=== PATIENT | male | born 1965 | race Caucasian/White ===

== ENCOUNTER 2015-12-24 16:41 | Outpatient (RCR) | payer BC ==
[2015-12-24 10:22] LABS: BASOPHILS % (AUTO) 0 % (0-10); EOSINOPHILS # (AUTO) 0.2 10^3/uL (0.0-0.3); EOSINOPHILS % (AUTO) 3 % (0-10); LYMPHOCYTES # (AUTO) 1.9 X 10^3 (1.0-4.0); LYMPHOCYTES % (AUTO) 25 % (12-44); MEAN CORPUSCULAR HEMOGLOBIN 30 PG (25-34); MEAN CORPUSCULAR HGB CONC 34 G/DL (32-36); MEAN CORPUSCULAR VOLUME 90 FL (80-99); MEAN PLATELET VOLUME 10.7 FL (7.4-10.4); MONOCYTES # (AUTO) 0.9 X 10^3 (0.0-1.0); MONOCYTES % (AUTO) 12 % (0-12); NEUTROPHILS # (AUTO) 4.4 X 10^3 (1.8-7.8); NEUTROPHILS % (AUTO) 60 % (42-75); PLATELET COUNT 268 10^3/uL (130-400); RED CELL DISTRIBUTION WIDTH 13.5 % (10.0-14.5); WHITE BLOOD COUNT 7.4 10^3/uL (4.3-11.0)
[2015-12-24 10:39] LABS: PROTHROMBIN TIME PATIENT 13.1 SEC (12.2-14.7)
[2015-12-24 10:49] LABS: ALANINE AMINOTRANSFERASE 6 U/L (0-55); ALBUMIN 4.1 G/DL (3.2-4.5); ANION GAP 12 MMOL/L (5-14); ASPARTATE AMINO TRANSFERASE 25 U/L (5-34); BILIRUBIN,TOTAL 0.4 MG/DL (0.1-1.0); BLOOD UREA NITROGEN 11 MG/DL (7-18); BUN/CREATININE RATIO 13; CALCIUM 9.5 MG/DL (8.5-10.1); CARBON DIOXIDE 20 MMOL/L (21-32); CHLORIDE 103 MMOL/L (98-107); CREATININE SERUM 0.85 MG/DL (0.60-1.30); GFR ESTIMATED > 60; GLUCOSE 118 MG/DL (70-105); POTASSIUM 4.8 MMOL/L (3.6-5.0); SODIUM 135 MMOL/L (135-145); TOTAL PROTEIN 7.4 G/DL (6.4-8.2)
--- OUTSIDE RECORDS SUMMARY | 2015-12-24 16:44 | XMS REPORT | Continuity of Care Document ---
Author Author [facility] Organization [facility] Address Unknown Phone Unavailable Care Team Providers Care Core Analysis Operator Name Role Phone BobStas silva PCP [phone] Source Comments Some departments are not documenting in the electronic medical record. If you do not see the information that you expected, contact Release of Information in the Health Information Management department at [phone] for further assistance in locating additional records.[facility] Active Allergies and Adverse Reactions Allergen Noted Date Severity Reactions Comments Pollen 08/13/2015 Medium FEVER Current Medications Prescription Sig. Disp. Refills Start End Date Status Date losartan/hydrochlorothiaz Take 1 Tab by mouth Active birgit (HYZAAR) 100/12.5 mg daily. tablet amLODIPine (NORVASC) 5 mg Take 5 mg by mouth daily. Active tablet famotidine (PEPCID) 20 mg Take 20 mg by mouth daily Active tablet as needed. ibuprofen (MOTRIN) 600 mg Take 600 mg by mouth Active tablet every 6 hours as needed. diphenhydrAMINE Take 25 mg by mouth every Active (BENADRYL) 25 mg capsule 6 hours as needed. morphine IR (MSIR) 15 mg Take 15 mg by mouth at Active tablet bedtime daily ledipasvir-sofosbuvir(+) Take 1 Tab by mouth 30 Tab 1 08/28/19 Active (HARVONI) 90-400 mg daily. Indications: 16 tablet CHRONIC HEPATITIS C - GENOTYPE 1 Active Problems Problem Noted Date Porphyria cutanea tarda (HCC) 08/23/2014 Hepatitis C 08/21/2014 Overview: Diagnosed 2014 Genotype 1 a, treatment naive. Transaminitis 04/26/2014 Overview: - AST/ALT mildly elevated L ast Assessment & Plan: - likely related to ETOH use and Hep C - hepatitis C reactive on panel, viral load in process (no previous history of hepatitis) HTN (hypertension) 04/26/2014 Porphyrins urinary excretion increased (HCC) 04/26/2014 Overview: - urine porphyrins check due to rash - 24h urine urine: uroporphyrin (UP) 328, heptacarboxyl (7-CP) 479, pentacarboxyl (5-CP) 154, coproporphyrin (CP) 75, CP III 365 (all elevated) L ast Assessment & Plan: - symptoms are not classic for porphyria, but he does have elevated LFTs, red urine, hepatitis, that can all be linked to porphyria cutaneous tarda - will check serum porphyrins, repeat urine porphyrins - ferritin level and CBC pending, will plan to do phlebotomies with goal ferritin <20 if Hgb adequate EtOH dependence (HCC) 04/26/2014 Overview: - drinks ~6-12 pk daily L ast Assessment & Plan: - encouraged abstinence H/O testicular cancer 04/26/2014 Overview: - 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, s/p L orchiectomy and RPLND, s/p 4 cycles adjuvant PBV 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 - s/p excision in 2001 Resolved Problems Problem Noted Date Resolved Date Rash and nonspecific skin eruption 04/26/2014 08/14/2015 Overview: - persistent rash that has been present > 10 years - primarily on the arms bilaterally, noticed rash on neck and back of ears, as well - rash described as blistering that usually follow some type of trauma (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) - No worse in sun exposure, however diaphoresis seems to precipitate blistering - pruritic but was recently started on steroid cream which helps relieve itching - seen by baseball club manager in [place], [place] who sent urine for porphyrins, which came back elevated L ast Assessment & Plan: - repeating porphyria workup - cont steroid cream and following with derm for rash Most Recent Encounters Date Type Specialty Providers Description 12/03/2015 Telephone Hepatology Jamal Dyson MD Other 12/03/2015 Telephone Hepatology Jamal Dyson MD Follow-up Phone Call 11/29/2015 Orders Only Hepatology Renee Pascual Chronic hepatitis C without hepatic coma (HCC) 10/08/2015 Orders Only Hepatology Renee Pascual Chronic hepatitis C without hepatic coma (HCC) 10/04/2015 Orders Only Hepatology Renee Pascual Chronic hepatitis C without hepatic coma (HCC) Social History Tobacco Use Types Packs/Day Years Used Date Heavy Tobacco Smoker Cigarettes 04 21 Tobacco Cessation: Ready to Quit: No; Counseling Given: Yes Comments: Alcohol Use Drinks/Week oz/Week Comments Yes Last Filed Vital Signs Vital Sign Reading Time Taken Blood Pressure 170/87 08/13/2015 11:32 AM CDT Pulse 87 08/13/2015 11:32 AM CDT Temperature 36.6 C (97.9 F) 08/13/2015 11:32 AM CDT Respiratory Rate 18 08/13/2015 11:32 AM CDT Height 1.702 m (5' 7") 08/13/2015 11:32 AM CDT Weight 87.635 kg (193 lb 3.2 oz) 08/13/2015 11:32 AM CDT Body Mass Index 30.25 08/13/2015 11:32 AM CDT Oxygen Saturation 100% 08/13/2015 11:32 AM CDT Plan of Care Date Type Specialty Providers Description 02/08/2016 Appointment Hepatology Jamal Dyson MD [address] [facility] [address] [place] [address] [phone] (Fax) Health Maintenance Due Date Last Done Comments Physical (Comprehensive) 06/15/1970 Exam Pertussis Vaccine 06/15/1974 Tetanus Vaccine 06/15/1980 Colorectal Cancer 06/15/2013 Screening Influenza Vaccine 11/22/2015 Results from Last 3 Months COMPREHENSIVE METABOLIC PANEL (11/27/2015 10:30 AM)Only the most recent of 2 results within the time period is included. Component Value Range Sodium 136 135-145 MMOL/L Potassium 4.3 3.6-5.0 MMOL/L Chloride 102 98-107 MMOL/L CO2 22 21-32 MMOL/L Anion Gap 12 5-14 MMOL/L Blood Urea Nitrogen 13 7-18 MG/DL Creatinine 0.99 0.60-1.30 MG/DL eGFR Non >60 Glucose 119 (H) 70-105 H Calcium 9.8 8.5-10.1 MG/DL Total Bilirubin 0.5 0.1-1.0 MG/DL Alk Phosphatase 56 40-136 U/L AST (SGOT) 26 5-34 U/L ALT (SGPT) 8 0-55 U/L Total Protein 7.7 6.4-8.2 G/DL Albumin 4.2 3.2-4.5 G/DL Specimen Blood Narrative Outside Lab Verified by Renee Velez on 11/29/2015. PROTIME INR (PT) (11/27/2015 10:30 AM)Only the most recent of 2 results within the time period is included. Component Value Range Protime 12.4 12.2-14.7 SEC INR 1.0 0.8-1.4 Specimen Blood Narrative Outside Lab Verified by Renee Velez on 11/29/2015. CBC AND DIFF (11/27/2015 10:30 AM)Only the most recent of 2 results within the time period is included. Component Value Range Absolute Neutrophil Count 5.0 1.9-7.8 10^3/uL Absolute Lymph Count 2.2 1.0-4.0 10^3/uL Absolute Monocyte Count 1.1 (H) 0.0-1.0 10^3/uL Absolute Eosinophil Count 0.3 0.0-0.3 10^3/uL White Blood Cells 8.7 4.3-11.0 10^3/uL RBC 5.38 4.35-5.85 10^6/uL Hemoglobin 16.2 13.3-17.7 g/dl Hematocrit 48 40-54 % MCV 89 80-99 fl MCH 30 25-34 pg MCHC 34 32-36 g/dl Platelet Count 290 130-400 10^3/uL Neutrophils 58 42-75 % Lymphocytes 26 12-44 % Monocytes 13 (H) 0-12 % Eosinophil 3 0-10 % Basophil 0 0-10 % Specimen Blood Narrative Outside Lab Verified by Renee Velez on 11/29/2015. HEPATITIS C VIRAL LOAD PCR QUANT (10/02/2015 10:43 AM) Component Value Range Hepatitis C PCR not detected Quantitative Specimen Blood Narrative Outside Lab Verified by Renee Velez on 10/08/2015.
[2015-12-27 08:12] LABS: HEP C COPIES ML Not Detected (<=11)
[2015-12-27 08:13] LABS: HEPATITIS C LOG ML Not Detected (NOT DETECTE)
== END 2016-03-23 | disposition home or self-care (01) ==
LOC: LAB 16:41
PROVIDERS: ATTEND Internal Medicine
DX: B18.2 Chronic viral hepatitis C (principal)
CPT/HCPCS: 36415; 80053; 85025; 85610; 87522

== ENCOUNTER 2016-07-23 15:00 | Outpatient (RCR) | payer BC ==
[2016-07-17 11:25] LABS: BASOPHILS % (AUTO) 0 % (0-10); EOSINOPHILS # (AUTO) 0.3 10^3/uL (0.0-0.3); EOSINOPHILS % (AUTO) 3 % (0-10); LYMPHOCYTES # (AUTO) 2.5 X 10^3 (1.0-4.0); LYMPHOCYTES % (AUTO) 30 % (12-44); MEAN CORPUSCULAR HEMOGLOBIN 30 PG (25-34); MEAN CORPUSCULAR HGB CONC 33 G/DL (32-36); MEAN CORPUSCULAR VOLUME 91 FL (80-99); MEAN PLATELET VOLUME 10.7 FL (7.4-10.4); MONOCYTES # (AUTO) 0.9 X 10^3 (0.0-1.0); MONOCYTES % (AUTO) 11 % (0-12); NEUTROPHILS # (AUTO) 4.6 X 10^3 (1.8-7.8); NEUTROPHILS % (AUTO) 55 % (42-75); PLATELET COUNT 274 10^3/uL (130-400); RED BLOOD COUNT 5.18 10^6/uL (4.35-5.85); RED CELL DISTRIBUTION WIDTH 12.7 % (10.0-14.5); WHITE BLOOD COUNT 8.3 10^3/uL (4.3-11.0)
[2016-07-17 11:52] LABS: ALANINE AMINOTRANSFERASE 7 U/L (0-55); ALBUMIN 4.2 G/DL (3.2-4.5); ANION GAP 11 MMOL/L (5-14); ASPARTATE AMINO TRANSFERASE 22 U/L (5-34); BILIRUBIN,TOTAL 0.4 MG/DL (0.1-1.0); BLOOD UREA NITROGEN 14 MG/DL (7-18); BUN/CREATININE RATIO 14; CALCIUM 9.2 MG/DL (8.5-10.1); CARBON DIOXIDE 24 MMOL/L (21-32); CHLORIDE 102 MMOL/L (98-107); CREATININE SERUM 0.97 MG/DL (0.60-1.30); GFR ESTIMATED > 60; GLUCOSE 100 MG/DL (70-105); POTASSIUM 4.7 MMOL/L (3.6-5.0); SODIUM 137 MMOL/L (135-145); TOTAL PROTEIN 7.5 G/DL (6.4-8.2)
== END 2016-10-15 | disposition home or self-care (01) ==
LOC: ONC 15:00
PROVIDERS: ATTEND Internal Medicine Hematology & Oncology
DX: Z08 Encounter for follow-up examination after completed treatment for malignant neoplasm (principal); Z85.47 Personal history of malignant neoplasm of testis; Z85.89 Personal history of malignant neoplasm of other organs and systems; B19.20 Unspecified viral hepatitis C without hepatic coma; E80.1 Porphyria cutanea tarda; I10 Essential (primary) hypertension; F17.210 Nicotine dependence, cigarettes, uncomplicated
CPT/HCPCS: 36415; 80053; 82728; 85025; 99213

== ENCOUNTER 2017-03-12 14:25 | Outpatient (RCR) | payer BC ==
[2017-03-11 14:45] LABS: BASOPHILS % (AUTO) 0 % (0-10); EOSINOPHILS # (AUTO) 0.2 10^3/uL (0.0-0.3); EOSINOPHILS % (AUTO) 2 % (0-10); HEMATOCRIT 44 % (40-54); HEMOGLOBIN 15.4 G/DL (13.3-17.7); LYMPHOCYTES # (AUTO) 2.1 X 10^3 (1.0-4.0); LYMPHOCYTES % (AUTO) 19 % (12-44); MEAN CORPUSCULAR HEMOGLOBIN 31 PG (25-34); MEAN CORPUSCULAR HGB CONC 35 G/DL (32-36); MEAN CORPUSCULAR VOLUME 91 FL (80-99); MONOCYTES # (AUTO) 1.3 X 10^3 (0.0-1.0); MONOCYTES % (AUTO) 12 % (0-12); NEUTROPHILS # (AUTO) 7.5 X 10^3 (1.8-7.8); NEUTROPHILS % (AUTO) 68 % (42-75); PLATELET COUNT 277 10^3/uL (130-400); RED CELL DISTRIBUTION WIDTH 12.5 % (10.0-14.5); WHITE BLOOD COUNT 11.1 10^3/uL (4.3-11.0)
[2017-03-11 15:04] LABS: ALANINE AMINOTRANSFERASE 10 U/L (0-55); ALBUMIN 4.2 GM/DL (3.2-4.5); ALKALINE PHOSPHATASE 58 U/L (40-136); BILIRUBIN,TOTAL 0.3 MG/DL (0.1-1.0); BUN/CREATININE RATIO 16; CALCIUM 8.9 MG/DL (8.5-10.1); CARBON DIOXIDE 23 MMOL/L (21-32); CHLORIDE 105 MMOL/L (98-107); CREATININE SERUM 0.98 MG/DL (0.60-1.30); GFR ESTIMATED > 60; GLUCOSE 89 MG/DL (70-105); SODIUM 138 MMOL/L (135-145); TOTAL PROTEIN 7.7 GM/DL (6.4-8.2)
== END 2017-06-09 | disposition home or self-care (01) ==
LOC: ONC 14:25
PROVIDERS: ATTEND Internal Medicine Hematology & Oncology
DX: Z08 Encounter for follow-up examination after completed treatment for malignant neoplasm (principal); Z85.47 Personal history of malignant neoplasm of testis; Z85.89 Personal history of malignant neoplasm of other organs and systems; B19.20 Unspecified viral hepatitis C without hepatic coma; E80.1 Porphyria cutanea tarda; I10 Essential (primary) hypertension; F17.210 Nicotine dependence, cigarettes, uncomplicated; Z79.899 Other long term (current) drug therapy
CPT/HCPCS: 36415; 80053; 82378; 82728; 85025; 99213

== ENCOUNTER → 2018-03-09 | Outpatient (CLI) | payer BC ==
[2018-03-10 09:22] LABS: BUN/CREATININE RATIO 14; CARBON DIOXIDE 25 MMOL/L (21-32); CHLORIDE 104 MMOL/L (98-107); GFR ESTIMATED > 60; POTASSIUM 4.4 MMOL/L (3.6-5.0); SODIUM 139 MMOL/L (135-145)
[2018-03-10 09:23] LABS: ALANINE AMINOTRANSFERASE < 6 U/L (0-55); ALBUMIN 4.3 GM/DL (3.2-4.5); ALKALINE PHOSPHATASE 67 U/L (40-136); BILIRUBIN,TOTAL 0.5 MG/DL (0.1-1.0); CALCIUM 9.6 MG/DL (8.5-10.1); GLUCOSE 129 MG/DL (70-105); TOTAL PROTEIN 7.7 GM/DL (6.4-8.2)
[2018-03-10 09:24] LABS: HEMOGLOBIN 17.6 G/DL (13.3-17.7); MEAN PLATELET VOLUME 10.9 FL (7.4-10.4); RED BLOOD COUNT 5.67 10^6/uL (4.35-5.85); RED CELL DISTRIBUTION WIDTH 13.2 % (10.0-14.5); WHITE BLOOD COUNT 5.9 10^3/uL (4.3-11.0)
== END ==
LOC: LAB 14:09
PROVIDERS: ATTEND Internal Medicine
DX: R53.1 Weakness (principal); E80.1 Porphyria cutanea tarda; B19.20 Unspecified viral hepatitis C without hepatic coma; Z72.0 Tobacco use; Z85.89 Personal history of malignant neoplasm of other organs and systems; Z85.47 Personal history of malignant neoplasm of testis
CPT/HCPCS: 36415; 80053; 84443

== ENCOUNTER 2018-04-19 09:48 | Outpatient (RCR) | payer BC ==
[2018-03-09 13:07] LABS: BASOPHILS % (AUTO) 0 % (0-10); EOSINOPHILS # (AUTO) 0.2 10^3/uL (0.0-0.3); EOSINOPHILS % (AUTO) 3 % (0-10); HEMATOCRIT 51 % (40-54); HEMOGLOBIN 17.6 G/DL (13.3-17.7); LYMPHOCYTES # (AUTO) 1.8 X 10^3 (1.0-4.0); LYMPHOCYTES % (AUTO) 31 % (12-44); MEAN CORPUSCULAR HEMOGLOBIN 31 PG (25-34); MEAN CORPUSCULAR HGB CONC 35 G/DL (32-36); MEAN CORPUSCULAR VOLUME 90 FL (80-99); MEAN PLATELET VOLUME 10.9 FL (7.4-10.4); MONOCYTES # (AUTO) 0.6 X 10^3 (0.0-1.0); MONOCYTES % (AUTO) 11 % (0-12); NEUTROPHILS # (AUTO) 3.3 X 10^3 (1.8-7.8); NEUTROPHILS % (AUTO) 55 % (42-75); PLATELET COUNT 274 10^3/uL (130-400); RED CELL DISTRIBUTION WIDTH 13.2 % (10.0-14.5); WHITE BLOOD COUNT 5.9 10^3/uL (4.3-11.0)
[2018-03-09 13:26] LABS: ALANINE AMINOTRANSFERASE < 6 U/L (0-55); ALBUMIN 4.3 GM/DL (3.2-4.5); ALKALINE PHOSPHATASE 67 U/L (40-136); BILIRUBIN,TOTAL 0.5 MG/DL (0.1-1.0); BUN/CREATININE RATIO 14; CALCIUM 9.6 MG/DL (8.5-10.1); CARBON DIOXIDE 25 MMOL/L (21-32); CHLORIDE 104 MMOL/L (98-107); GFR ESTIMATED > 60; GLUCOSE 129 MG/DL (70-105); POTASSIUM 4.4 MMOL/L (3.6-5.0); SODIUM 139 MMOL/L (135-145); TOTAL PROTEIN 7.7 GM/DL (6.4-8.2)
== END 2018-06-07 | disposition home or self-care (01) ==
LOC: ONC 09:48
PROVIDERS: ATTEND Internal Medicine Hematology & Oncology
DX: E80.1 Porphyria cutanea tarda (principal); B19.20 Unspecified viral hepatitis C without hepatic coma; Z85.47 Personal history of malignant neoplasm of testis; Z85.89 Personal history of malignant neoplasm of other organs and systems; I10 Essential (primary) hypertension; F17.210 Nicotine dependence, cigarettes, uncomplicated; Z08 Encounter for follow-up examination after completed treatment for malignant neoplasm; Z79.899 Other long term (current) drug therapy
CPT/HCPCS: 80053; 82378; 82728; 84443; 85025; 85027; 99213

== ENCOUNTER 2019-05-09 12:01 | Outpatient (RCR) | payer SELFPAY | END 2019-05-12 13:38 | disposition home or self-care (01) | LOC: ONC 12:01 | PROVIDERS: ATTEND Internal Medicine Hematology & Oncology | DX: E80.1 Porphyria cutanea tarda (principal); B19.20 Unspecified viral hepatitis C without hepatic coma; Z85.47 Personal history of malignant neoplasm of testis; Z85.89 Personal history of malignant neoplasm of other organs and systems; I10 Essential (primary) hypertension; F17.210 Nicotine dependence, cigarettes, uncomplicated; Z08 Encounter for follow-up examination after completed treatment for malignant neoplasm; Z79.899 Other long term (current) drug therapy ==

== ENCOUNTER → 2019-05-12 | Outpatient (CLI) | payer SELFPAY ==
[2019-05-09 12:12] LABS: BASOPHILS % (AUTO) 0 % (0-10); EOSINOPHILS # (AUTO) 0.3 10^3/uL (0.0-0.3); EOSINOPHILS % (AUTO) 4 % (0-10); HEMATOCRIT 47 % (40-54); HEMOGLOBIN 15.9 G/DL (13.3-17.7); LYMPHOCYTES # (AUTO) 2.8 X 10^3 (1.0-4.0); LYMPHOCYTES % (AUTO) 32 % (12-44); MEAN CORPUSCULAR HEMOGLOBIN 31 PG (25-34); MEAN CORPUSCULAR HGB CONC 34 G/DL (32-36); MEAN CORPUSCULAR VOLUME 91 FL (80-99); MEAN PLATELET VOLUME 10.8 FL (7.4-10.4); MONOCYTES % (AUTO) 11 % (0-12); NEUTROPHILS # (AUTO) 4.9 X 10^3 (1.8-7.8); NEUTROPHILS % (AUTO) 54 % (42-75); PLATELET COUNT 287 10^3/uL (130-400); RED CELL DISTRIBUTION WIDTH 13.1 % (10.0-14.5)
[2019-05-09 12:38] LABS: ALANINE AMINOTRANSFERASE 8 U/L (0-55); ALBUMIN 4.3 GM/DL (3.2-4.5); ALKALINE PHOSPHATASE 62 U/L (40-136); BILIRUBIN,TOTAL 0.2 MG/DL (0.1-1.0); BUN/CREATININE RATIO 18; CALCIUM 9.5 MG/DL (8.5-10.1); CARBON DIOXIDE 24 MMOL/L (21-32); CHLORIDE 105 MMOL/L (98-107); GFR ESTIMATED > 60; GLUCOSE 97 MG/DL (70-105); POTASSIUM 4.7 MMOL/L (3.6-5.0); SODIUM 138 MMOL/L (135-145); TOTAL PROTEIN 7.4 GM/DL (6.4-8.2)
== END ==
LOC: EDSTATUS 06-08 08:32 → ONC 13:32
PROVIDERS: ATTEND Internal Medicine Hematology & Oncology
DX: E80.1 Porphyria cutanea tarda (principal); R19.4 Change in bowel habit; Z85.89 Personal history of malignant neoplasm of other organs and systems; Z85.47 Personal history of malignant neoplasm of testis; Z98.890 Other specified postprocedural states; Z86.19 Personal history of other infectious and parasitic diseases; Z90.79 Acquired absence of other genital organ(s); Z72.0 Tobacco use
CPT/HCPCS: 80053; 82378; 82728; 85025; 99213

== ENCOUNTER → 2019-05-17 | Outpatient (CLI) | payer OTHER ==
[~2019-05-17] MED LIST: BARIUM SUSPENSION 2.1% (VANILLA SILQ) 450 ML PO ONE; CATHETER FLUSH 10 ML SYR IV PRN; HOLD METFORMIN - RECEIVED CONTRAST 20 ML VIAL IV SCH; IOHEXOL 350 MG/ML 100 ML (OMNIPAQUE 350) VIAL IV ONE; NS 100 ML (IVPB) BAG IV ONE
--- NOTE | 2019-05-17 10:37 | Diagnostic Imaging Report ---
PROCEDURE: CT Neck, Chest Abdomen and Pelvis with contrast, Abdomen and Pelvis without. TECHNIQUE: Multiple contiguous axial images were obtained through the neck, chest, abdomen, and pelvis after the uneventful bolus administration of intravenous contrast. Precontrast acquisitions through the abdomen and pelvis were performed. Sagittal and coronal reformations are then performed. Auto Exposure Controls were utilized during the CT exam to meet ALARA standards for radiation dose reduction. INDICATION: Testicular cancer at age 15. Abdominal pain. COMPARISON: None. FINDINGS: CT NECK: No mass or fluid collection is seen in the neck. Left neck dissection changes are seen at the base of the left neck. There are mildly prominent cervical lymph nodes in the bilateral level 1B stations. No significant lymphadenopathy is seen based on size criteria. The aerodigestive tract is patent and symmetric. The parapharyngeal fat planes are preserved. No evidence of retropharyngeal or prevertebral fluid collections or masses. The laryngeal structures are unremarkable. The parotid, submandibular, and thyroid glands are symmetric and unremarkable. The included vascular structures of the neck are patent. The cervical spine demonstrates no acute fracture or dislocation. No focal osseous lesions are seen. Included intracranial contents are unremarkable. The globes and orbits are symmetric and unremarkable. Mucosal thickening is seen in the bilateral ethmoid sinuses, right sphenoid sinus, and left maxillary sinus. The mastoid air cells are well pneumatized. CT CHEST: The heart size is normal. No pericardial effusion. No lymphadenopathy in the chest. The lungs are clear without suspicious nodules or masses. Minimal dependent atelectasis is seen in the lung bases. No central endobronchial obstructing lesions. No pleural effusion or pneumothorax. No acute osseous abnormalities are seen in the chest. CT ABDOMEN AND PELVIS: There is generalized thickening of the left adrenal gland without focal nodularity. The right adrenal gland is unremarkable. A simple cortical cyst is seen in the inferior pole of the left kidney. No enhancing renal masses are seen bilaterally. No evidence of hydronephrosis or renal calculi. The liver, spleen, and pancreas have an unremarkable CT appearance without acute abnormalities. Postsurgical changes are visualized in the retroperitoneum representing lymph node dissection. No pathologically enlarged lymphadenopathy is seen in the abdomen and pelvis. No evidence of bowel obstruction. Scattered diverticuli are seen in the descending and sigmoid colon without evidence of acute diverticulitis. No free fluid or free air seen in the abdomen and pelvis. There is calcified aortic and iliac atherosclerotic plaque without evidence of aneurysm. No acute osseous abnormalities are seen. Endplate degenerative changes are present at L5-S1. The urinary bladder is mildly distended. The prostate is enlarged with exophytic protrusion into the trigone of the bladder. IMPRESSION: 1. No findings to suggest metastatic disease in the neck, chest, abdomen and pelvis. No pathologically enlarged lymphadenopathy. 2. Nonspecific generalized thickening of the left adrenal gland without focal nodule. If indicated, this can be followed with adrenal protocol CT in 6 months. Dictated by: Dictated on workstation # [id number]
== END ==
LOC: RAD 09:08
PROVIDERS: ATTEND Internal Medicine Hematology & Oncology
DX: E27.9 Disorder of adrenal gland, unspecified (principal); R19.4 Change in bowel habit; Z85.47 Personal history of malignant neoplasm of testis; Z85.89 Personal history of malignant neoplasm of other organs and systems
CPT/HCPCS: 70491; 71260; 74178

== ENCOUNTER 2019-05-26 05:37 | Outpatient (CLI) | payer OTHER ==
[~2019-05-26] VITALS: Ht 170.2 cm; Wt 90.5 kg
[2019-05-26] MEDS ORDERED: MORP-68 PO (11:50)
[2019-05-26] MEDS ORDERED: GABA-488 PO ×2 (11:50)
[2019-05-26] MEDS ORDERED: DIPH25TA65 PO (11:50)
[2019-05-26] MEDS ORDERED: IBUP-1773 PO (11:50)
[2019-05-26] MEDS ORDERED: LOSA100T57 PO (11:50)
[2019-05-26] MEDS ORDERED: AMLO10TA7 PO (11:50)
== END 2019-05-26 11:50 | disposition home or self-care (01) ==
LOC: PREOP 05:37
PROVIDERS: ATTEND Surgery
DX: Z01.818 Encounter for other preprocedural examination (principal)

== ENCOUNTER 2019-06-07 10:23 | Outpatient (RCR) | payer OTHER ==
[~2019-06-07 10:23] MED LIST changes: +AMLO10TA7 PO; -BARIUM SUSPENSION 2.1% (VANILLA SILQ) 450 ML PO ONE; -CATHETER FLUSH 10 ML SYR IV PRN; +DIPH25TA65 PO; +GABA-488 PO; -HOLD METFORMIN - RECEIVED CONTRAST 20 ML VIAL IV SCH; +IBUP-1773 PO; -IOHEXOL 350 MG/ML 100 ML (OMNIPAQUE 350) VIAL IV ONE; +LOSA100T57 PO; +MORP-68 PO; -NS 100 ML (IVPB) BAG IV ONE
== END 2019-09-05 | disposition home or self-care (01) ==
LOC: ONC 10:23
PROVIDERS: ATTEND Internal Medicine Hematology & Oncology
DX: D12.4 Benign neoplasm of descending colon (principal); K22.70 Barrett's esophagus without dysplasia; K57.30 Diverticulosis of large intestine without perforation or abscess without bleeding; K29.50 Unspecified chronic gastritis without bleeding; K64.0 First degree hemorrhoids; I10 Essential (primary) hypertension; J30.2 Other seasonal allergic rhinitis; Z90.49 Acquired absence of other specified parts of digestive tract; Z98.890 Other specified postprocedural states
CPT/HCPCS: 99213

== ENCOUNTER → 2019-11-29 | Outpatient (CLI) | payer SELFPAY ==
[~2019-11-29] MED LIST changes: +BARIUM SUSPENSION 2.1% (VANILLA SILQ) 450 ML PO ONE; +CATHETER FLUSH 10 ML SYR IV PRN; +HOLD METFORMIN - RECEIVED CONTRAST 20 ML VIAL IV SCH; +IOHEXOL 350 MG/ML 100 ML (OMNIPAQUE 350) VIAL IV ONE; +NS 100 ML (IVPB) BAG IV ONE
--- NOTE | 2019-11-29 11:34 | Diagnostic Imaging Report ---
PROCEDURE: CT abdomen with and without contrast. TECHNIQUE: Multiple contiguous axial CT images of the abdomen were obtained prior to and after intravenous administration of iodinated contrast. Auto Exposure Controls were utilized during the CT exam to meet ALARA standards for radiation dose reduction. INDICATION: Primary testicular carcinoma with elevated tumor markers. Correlation is made with prior CT from 05/17/2019. FINDINGS: The lung bases are clear. No discrete liver mass is detected. Gallbladder is unremarkable. No biliary ductal dilatation is seen. Pancreas and spleen are unremarkable. Right adrenal glands unremarkable. Thickening of the left adrenal gland is similar to prior exam. Kidneys are unremarkable. Aorta and iliac vessels are calcified but nonaneurysmal. There are postsurgical changes of central retroperitoneal lymph node dissection. Small retrocrural lymph node on the right is noted and appears similar to prior exam with short axis measuring approximately 7 mm. There is a questionable lymph node in the portacaval location measuring 3.1 x 1.2 cm, stable when compared to prior exam. Bowel loops are normal caliber. There is no ascites. Bony structures are nonacute. IMPRESSION: Overall stable CT abdomen with and without contrast when compared with prior study from 05/17/2019. Dictated by: Dictated on workstation # [id number]
== END ==
LOC: RAD 09:21
PROVIDERS: ATTEND Internal Medicine Hematology & Oncology
DX: E80.1 Porphyria cutanea tarda (principal); Z85.47 Personal history of malignant neoplasm of testis; C62.90 Malignant neoplasm of unspecified testis, unspecified whether descended or undescended
CPT/HCPCS: 74170

== ENCOUNTER 2019-12-09 13:48 | Outpatient (RCR) | payer SELFPAY ==
[2019-11-29 09:08] LABS: BASOPHILS % (AUTO) 0 % (0-10); EOSINOPHILS # (AUTO) 0.5 10^3/uL (0.0-0.3); EOSINOPHILS % (AUTO) 5 % (0-10); HEMATOCRIT 47 % (40-54); HEMOGLOBIN 16.3 G/DL (13.3-17.7); LYMPHOCYTES # (AUTO) 1.9 X 10^3 (1.0-4.0); LYMPHOCYTES % (AUTO) 20 % (12-44); MEAN CORPUSCULAR HEMOGLOBIN 31 PG (25-34); MEAN CORPUSCULAR HGB CONC 35 G/DL (32-36); MEAN CORPUSCULAR VOLUME 89 FL (80-99); MEAN PLATELET VOLUME 10.6 FL (7.4-10.4); MONOCYTES # (AUTO) 1.3 X 10^3 (0.0-1.0); MONOCYTES % (AUTO) 13 % (0-12); NEUTROPHILS # (AUTO) 6.2 X 10^3 (1.8-7.8); NEUTROPHILS % (AUTO) 63 % (42-75); PLATELET COUNT 263 10^3/uL (130-400); WHITE BLOOD COUNT 9.8 10^3/uL (4.3-11.0)
[2019-11-29 09:28] LABS: ALANINE AMINOTRANSFERASE 8 U/L (0-55); ALKALINE PHOSPHATASE 67 U/L (40-136); BILIRUBIN,TOTAL 0.2 MG/DL (0.1-1.0); BUN/CREATININE RATIO 17; CALCIUM 8.7 MG/DL (8.5-10.1); CARBON DIOXIDE 19 MMOL/L (21-32); CHLORIDE 109 MMOL/L (98-107); CREATININE SERUM 0.99 MG/DL (0.60-1.30); GFR ESTIMATED > 60; GLUCOSE 88 MG/DL (70-105); POTASSIUM 4.5 MMOL/L (3.6-5.0); SODIUM 137 MMOL/L (135-145); TOTAL PROTEIN 7.1 GM/DL (6.4-8.2)
[~2019-12-09 13:48] MED LIST changes: +AMLO-251 PO; -AMLO10TA7 PO; -BARIUM SUSPENSION 2.1% (VANILLA SILQ) 450 ML PO ONE; -CATHETER FLUSH 10 ML SYR IV PRN; -HOLD METFORMIN - RECEIVED CONTRAST 20 ML VIAL IV SCH; -IOHEXOL 350 MG/ML 100 ML (OMNIPAQUE 350) VIAL IV ONE; -NS 100 ML (IVPB) BAG IV ONE
== END 2020-02-27 | disposition home or self-care (01) ==
LOC: ONC 13:48
PROVIDERS: ATTEND Internal Medicine Hematology & Oncology
DX: D12.4 Benign neoplasm of descending colon (principal); K22.70 Barrett's esophagus without dysplasia; K57.30 Diverticulosis of large intestine without perforation or abscess without bleeding; K29.50 Unspecified chronic gastritis without bleeding; K64.0 First degree hemorrhoids; I10 Essential (primary) hypertension; J30.2 Other seasonal allergic rhinitis; Z90.49 Acquired absence of other specified parts of digestive tract; Z98.890 Other specified postprocedural states
CPT/HCPCS: 80053; 82728; 85025; 99195; 99213

== ENCOUNTER 2020-06-06 09:49 | Outpatient (RCR) | payer OTHER ==
[2020-06-04 10:33] LABS: BASOPHILS % (AUTO) 0 % (0-10); EOSINOPHILS # (AUTO) 0.3 10^3/uL (0.0-0.3); EOSINOPHILS % (AUTO) 3 % (0-10); HEMATOCRIT 47 % (40-54); HEMOGLOBIN 15.4 g/dL (13.3-17.7); LYMPHOCYTES # (AUTO) 1.9 10^3/uL (1.0-4.0); LYMPHOCYTES % (AUTO) 19 % (12-44); MEAN CORPUSCULAR HEMOGLOBIN 31 pg (25-34); MEAN CORPUSCULAR HGB CONC 33 g/dL (32-36); MEAN CORPUSCULAR VOLUME 93 fL (80-99); MEAN PLATELET VOLUME 10.9 fL (9.0-12.2); MONOCYTES # (AUTO) 1.1 10^3/uL (0.0-1.0); MONOCYTES % (AUTO) 11 % (0-12); NEUTROPHILS # (AUTO) 6.7 10^3/uL (1.8-7.8); NEUTROPHILS % (AUTO) 67 % (42-75); PLATELET COUNT 296 10^3/uL (130-400); WHITE BLOOD COUNT 10.1 10^3/uL (4.3-11.0)
[2020-06-04 10:51] LABS: ALANINE AMINOTRANSFERASE 7 U/L (0-55); ALKALINE PHOSPHATASE 62 U/L (40-136); BILIRUBIN,TOTAL 0.2 MG/DL (0.1-1.0); BUN/CREATININE RATIO 17; CALCIUM 9.1 MG/DL (8.5-10.1); CARBON DIOXIDE 21 MMOL/L (21-32); CHLORIDE 108 MMOL/L (98-107); CREATININE SERUM 1.03 MG/DL (0.60-1.30); GFR ESTIMATED > 60; GLUCOSE 94 MG/DL (70-105); POTASSIUM 4.2 MMOL/L (3.6-5.0); SODIUM 139 MMOL/L (135-145); TOTAL PROTEIN 7.1 GM/DL (6.4-8.2)
== END 2020-09-02 | disposition home or self-care (01) ==
LOC: ONC 09:49 → EDSTATUS 10:36
PROVIDERS: ATTEND Internal Medicine Hematology & Oncology
DX: E80.1 Porphyria cutanea tarda (principal); K22.70 Barrett's esophagus without dysplasia; I10 Essential (primary) hypertension; Z85.89 Personal history of malignant neoplasm of other organs and systems; F17.200 Nicotine dependence, unspecified, uncomplicated; F10.99 Alcohol use, unspecified with unspecified alcohol-induced disorder; Z85.47 Personal history of malignant neoplasm of testis; Z98.890 Other specified postprocedural states; Z86.19 Personal history of other infectious and parasitic diseases; Z90.79 Acquired absence of other genital organ(s); Z92.21 Personal history of antineoplastic chemotherapy
CPT/HCPCS: 80053; 82378; 82728; 85025; 99213

== ENCOUNTER 2020-12-07 11:52 | Outpatient (RCR) | payer BC, OTHER ==
[2020-12-05 11:08] LABS: BASOPHILS % (AUTO) 0 % (0-10); EOSINOPHILS # (AUTO) 0.4 10^3/uL (0.0-0.3); EOSINOPHILS % (AUTO) 4 % (0-10); HEMATOCRIT 47 % (40-54); HEMOGLOBIN 15.3 g/dL (13.3-17.7); LYMPHOCYTES # (AUTO) 2.4 10^3/uL (1.0-4.0); LYMPHOCYTES % (AUTO) 24 % (12-44); MEAN CORPUSCULAR HEMOGLOBIN 31 pg (25-34); MEAN CORPUSCULAR HGB CONC 33 g/dL (32-36); MEAN CORPUSCULAR VOLUME 94 fL (80-99); MEAN PLATELET VOLUME 10.8 fL (9.0-12.2); MONOCYTES # (AUTO) 0.9 10^3/uL (0.0-1.0); MONOCYTES % (AUTO) 9 % (0-12); NEUTROPHILS # (AUTO) 6.2 10^3/uL (1.8-7.8); NEUTROPHILS % (AUTO) 62 % (42-75); PLATELET COUNT 279 10^3/uL (130-400)
[2020-12-05 11:32] LABS: BILIRUBIN,TOTAL 0.6 MG/DL (0.1-1.0); CALCIUM 9.2 MG/DL (8.5-10.1); CREATININE SERUM 1.1 MG/DL (0.60-1.30); POTASSIUM 3.9 MMOL/L (3.6-5.0); TOTAL PROTEIN 6.8 GM/DL (6.4-8.2)
== END 2021-03-05 | disposition home or self-care (01) ==
LOC: ONC 11:52
PROVIDERS: ATTEND Internal Medicine Hematology & Oncology
DX: E80.1 Porphyria cutanea tarda (principal); K22.70 Barrett's esophagus without dysplasia; I10 Essential (primary) hypertension; E66.9 Obesity, unspecified; F10.99 Alcohol use, unspecified with unspecified alcohol-induced disorder; Z72.0 Tobacco use; Z85.89 Personal history of malignant neoplasm of other organs and systems
CPT/HCPCS: 80053; 82378; 82728; 85025; 99195

== ENCOUNTER → 2021-09-13 | Outpatient (CLI) | payer OTHER ==
[~2021-09-13] MED LIST changes: +BARIUM SUSPENSION 2.1% (VANILLA SILQ) 450 ML PO ONE; +CATHETER FLUSH 10 ML SYR IV PRN; +HOLD METFORMIN - RECEIVED CONTRAST 20 ML VIAL IV SCH; +IOHEXOL 350 MG/ML 100 ML (OMNIPAQUE 350) VIAL IV ONE; +NS 100 ML (IVPB) BAG IV ONE
--- NOTE | 2021-09-13 10:05 | Diagnostic Imaging Report ---
EXAMINATION: CT abdomen and pelvis without contrast. TECHNIQUE: Multiple contiguous axial images were obtained through the abdomen and pelvis without the use of intravenous contrast. All CT scans use one or more of the following dose optimizing techniques: automated exposure control, MA and/or KvP adjustment based on patient size and exam type or iterative reconstruction. HISTORY: Enterocutaneous fistula COMPARISON: 11/29/2019 FINDINGS: Limited views of the lower thorax are unremarkable. The liver is normal without focal lesion. There is no biliary ductal dilation. Gallbladder is normal. Pancreas is normal. Spleen is normal. There is unchanged adreniform hyperplasia of the left adrenal gland. No suspicious adrenal nodules. Simple cyst in the left kidney is unchanged. No suspicious renal lesions. There is no hydronephrosis. Urinary bladder is normal. Bowel is normal in caliber without obstruction or inflammation. There are extensive surgical clips in the retroperitoneum, likely related to prior lymphadenectomy. No leakage of oral contrast is seen. The bowel wall abuts the anterior abdominal wall just above the umbilicus with overlying soft tissue which may represent the site of the reported enterocutaneous fistula. No clearly defined fluid tract is seen extending from the bowel to the skin. No free fluid or air. No abdominal or pelvic lymphadenopathy. Aorta is normal in caliber without aneurysm. There are no suspicious osseus lesions. IMPRESSION: 1. Bowel abuts the anterior abdominal wall just above the umbilicus with overlying area of soft tissue which may represent the reported history of an enterocutaneous fistula. No leakage of contrast or discrete fluid attenuating tract is seen. Dictated by: Dictated on workstation # [id number]
== END ==
LOC: RAD 08:43
PROVIDERS: ATTEND Surgery
DX: K63.2 Fistula of intestine (principal)
CPT/HCPCS: 74176

== ENCOUNTER → 2021-10-21 | Outpatient (CLI) | payer OTHER ==
[~2021-10-21] MED LIST changes: -BARIUM SUSPENSION 2.1% (VANILLA SILQ) 450 ML PO ONE; -CATHETER FLUSH 10 ML SYR IV PRN; +DIATRIZOATE MEGLUM/SODIUM 37% 120 ML (GASTROGRAFIN) RC ONE; -HOLD METFORMIN - RECEIVED CONTRAST 20 ML VIAL IV SCH; -IOHEXOL 350 MG/ML 100 ML (OMNIPAQUE 350) VIAL IV ONE; -NS 100 ML (IVPB) BAG IV ONE
--- NOTE | 2021-10-21 13:08 | Diagnostic Imaging Report ---
Indication: Draining opening in the midline anterior abdomen at patient's previous incision site. Study is performed to evaluate for a entero-cutaneous fistula. A pediatric feeding tube was fed approximately 1 cm through the small opening in the midline anterior abdomen. Small amount of Gastrografin contrast was injected during fluoroscopic observation. 0.4 minutes of fluoroscopic time utilized. No fistula communication with abdominal bowel loops is seen. Only a very short blind ending sinus tract was visualized, apparently localized to the subcutaneous tissues. Preliminary radiograph does show numerous virginia throughout the abdomen and pelvis. IMPRESSION: Short subcutaneous sinus tract in the midline anterior abdomen, as described. No definite enterocutaneous fistula is detected. Dictated by: Dictated on workstation # [id number]
== END ==
LOC: RAD 11:30
PROVIDERS: ATTEND Surgery
DX: K63.2 Fistula of intestine (principal)
CPT/HCPCS: 76080

== ENCOUNTER 2021-11-14 05:32 | Outpatient (CLI) | payer OTHER ==
[~2021-11-14] VITALS: Ht 170.2 cm; Wt 89.8 kg
[~2021-11-14 05:32] MED LIST changes: -DIATRIZOATE MEGLUM/SODIUM 37% 120 ML (GASTROGRAFIN) RC ONE
== END 2021-11-14 16:19 ==
LOC: PREOP 05:32
PROVIDERS: ATTEND Surgery
DX: Z01.818 Encounter for other preprocedural examination (principal); R19.00 Intra-abdominal and pelvic swelling, mass and lump, unspecified site

== ENCOUNTER 2021-11-21 09:03 | Inpatient (IN) | payer OTHER ==
[2021-11-21] VITALS (11 sets, daily range): BP systolic 163–205; BP diastolic 70–100
[~2021-11-21] VITALS: Ht 170.2 cm; Wt 87.0 kg
[2021-11-21] MEDS ORDERED: ceFAZolin INJECTION 2,000 MG in NS (IVPB) 50 ML IV SCH ×2 (09:15→12:15)
[2021-11-21] MEDS: LACTATED RINGERS 1,000 ML IV PRN ×2 (09:24→11:40)
--- NOTE | 2021-11-21 09:50 | Progress Note-Pre Operative ---
Pre-Operative Progress Note Date of Available H&P: Oct 30, 2021 Date H&P Reviewed: Nov 21, 2021 Time H&P Reviewed: 09:49 History & Physical: H&P Reviewed, Patient Examed, No changes noted Pre-Operative Diagnosis: anterior abdominal wall mass, periumbilical pain JOSSELINE JEAN DO Nov 21, 2021 09:50
[2021-11-21] MEDS ORDERED: ONDANSETRON 4 MG/2 ML (SDV) Z0FRAN ONE (10:18)
[2021-11-21] MEDS ORDERED: proPOfol 200 MG/20 ML (DIPRIVAN) VIAL IV ONE (10:18)
[2021-11-21] MEDS ORDERED: SEVOFLURANE (ULTANE) 15 ML INHAL SOLN ONE (10:18)
[2021-11-21] MEDS ORDERED: fentaNYL INJ 100 MCG/2 ML AMP ONE ×2 (10:18→12:01)
[2021-11-21] MEDS ORDERED: MIDAZOLAM 2 MG/2 ML (VERSED) VIAL ONE (10:20)
[2021-11-21] MEDS ORDERED: ROCURONIUM 50 MG/5 ML (ZEMURON) VIAL IV ONE (10:54)
[2021-11-21] MEDS ORDERED: ONDANSETRON 4 MG/2 ML (SDV) Z0FRAN IVP PRN ×2 (12:15)
[2021-11-21] MEDS ORDERED: MEPERIDINE (DEMEROL) INJ 50 MG/ML IVP ONE (12:15)
[2021-11-21] MEDS ORDERED: morphine INJ 10 MG/ML 1ML (SYR OR VIAL) IVP PRN (12:15)
[2021-11-21] MEDS ORDERED: LACTATED RINGERS 1,000 ML BAG IV SCH (12:15)
[2021-11-21] MEDS ORDERED: morphine INJ 10 MG/ML 1ML (SYR OR VIAL) IVP ONE (12:15)
[2021-11-21] MEDS ORDERED: fentaNYL INJ 100 MCG/2 ML AMP IVP ONE (12:15)
[2021-11-21] MEDS ORDERED: morphine INJ 10 MG/ML 1ML (SYR OR VIAL) ONE (12:24)
[2021-11-21] MEDS ORDERED: HYDROmorphone 2 MG/ML VIAL (DILAUDID) ONE (12:38)
[2021-11-21] MEDS ORDERED: HYDROmorphone 2 MG/ML VIAL (DILAUDID) IV ONE (12:45)
[2021-11-21] MEDS: LACTATED RINGERS 1,000 ML IV SCH ×2 (13:39→22:10)
[2021-11-21] MEDS: metroNIDAZOLE 500MG/100ML IVPB 100 ML IV SCH ×2 (14:17→21:08)
[2021-11-21] MEDS: morphine INJ 4 MG/ML 1 ML (VIAL/SYRINGE) IV PRN ×3 (16:08→21:21)
[2021-11-21] MEDS: ceFAZolin INJECTION 2,000 MG in NS (IVPB) 50 ML IV SCH (18:05)
[2021-11-21] MEDS ORDERED: LOSARTAN 100 MG (COZAAR) TABLET PO ONE (19:45)
[2021-11-21] MEDS ORDERED: diphenhydrAMINE 25 MG TAB (BENADRYL) PO PRN (20:45)
[2021-11-21] MEDS ORDERED: FAMOTIDINE 20MG/2ML IV (PEPCID) ONE (20:59)
[2021-11-21] MEDS ORDERED: diphenhydrAMINE 25 MG TAB (BENADRYL) PO ONE (20:59)
[2021-11-21] MEDS: FAMOTIDINE 20 MG (PEPCID) TABLET PO SCH (21:21)
[2021-11-21] MEDS: NICOTINE 21 MG (NICODERM) PATCH TD SCH (22:10)
--- NOTE | 2021-11-21 23:58 | Progress Note-Post Operative ---
Post-Operative Progess Note Surgeon (s)/Health Information Director (s) Surgeon JOSSELINE JEAN DO Health Information Director: Dr. Bahena Pre-Operative Diagnosis anterior abdominal wall mass, periumbilical pain Post-Operative Diagnosis enterocutaneous fistula Procedure & Operative Findings Date of Procedure 11/21/21 Procedure Performed/Findings exploratory laparotomy small bowel resection Anesthesia Type general Estimated Blood Loss Estimated blood loss (mL): minimal Specimens/Packing Specimens Removed small bowel JOSSELINE JEAN DO Nov 21, 2021 23:58
[2021-11-22] VITALS (7 sets, daily range): BP systolic 172–190; BP diastolic 74–89
[2021-11-22] MEDS: LACTATED RINGERS 1,000 ML IV SCH ×3 (01:41→18:20)
[2021-11-22] MEDS: ceFAZolin INJECTION 2,000 MG in NS (IVPB) 50 ML IV SCH (01:42)
[2021-11-22] MEDS: morphine INJ 4 MG/ML 1 ML (VIAL/SYRINGE) IV PRN ×4 (03:33→19:41)
[2021-11-22] MEDS: diphenhydrAMINE 25 MG TAB (BENADRYL) PO PRN ×2 (06:42→21:23)
--- NOTE | 2021-11-22 07:36 | Progress Note - Surgery ---
BERNARD FLOWERS 11/22/21 0736: Subjective Date Seen by a Provider: Nov 22, 2021 Time Seen by a Provider: 07:33 Subjective/Events-last exam Pt is awake and alert this morning. Patient reports feeling well overall, but does report abdominal pain and back pain. Objective Exam Vital Signs Date Time Temp Pulse Resp B/P (MAP) Pulse Ox O2 Delivery O2 Flow Rate FiO2 11/22/21 03:37 36.5 74 18 172/74 (106) 98 Room Air 11/22/21 00:07 35.9 73 16 182/79 (113) 98 Room Air 11/21/21 20:00 Room Air 11/21/21 19:11 37.0 71 18 180/70 (106) 98 Room Air 11/21/21 15:23 36.6 75 20 169/80 (109) 96 Room Air 11/21/21 13:05 Room Air 11/21/21 13:00 36.5 63 18 175/73 (107) 100 Room Air 11/21/21 13:00 36.7 20 163/78 (106) 99 Room Air 11/21/21 12:55 Room Air 11/21/21 12:50 12 181/85 (117) 100 Room Air 11/21/21 12:40 24 169/83 (111) 100 OxyMask 8 11/21/21 12:40 OxyMask 8 11/21/21 12:30 14 189/82 (117) 100 OxyMask 8 11/21/21 12:25 OxyMask 8 11/21/21 12:20 16 205/98 (133) 100 OxyMask 8 11/21/21 12:10 OxyMask 8 11/21/21 12:10 24 191/77 (115) 100 OxyMask 8 11/21/21 12:00 16 192/100 (130) 100 OxyMask 8 11/21/21 11:56 36.2 16 192/97 (128) 100 OxyMask 8 11/21/21 11:56 OxyMask 8 11/21/21 09:10 36.3 75 18 188/96 (126) 98 Room Air I & O 11/22/21 06:59 Intake Total 1600 ml Output Total 2250 ml Balance -650 ml Capillary Refill : General Appearance: No Apparent Distress, WD/WN Neck: Non Tender, Supple Respiratory: Lungs Clear, Normal Breath Sounds Cardiovascular: Regular Rate, Rhythm, No Edema Gastrointestinal: normal bowel sounds, no pulsatile mass Extremity: Normal Inspection, Non Tender Neurologic/Psychiatric: Alert, Oriented x3 Skin: Normal Color, Warm/Dry Assessment/Plan Assessment/Plan Assessment/Plan 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 JOSSELINE LOZA DO 11/22/21 1603: Subjective Subjective/Events-last exam Pain controlled. No flatus or bm. Tolerating clears. No nausea or emesis. Denies fever sweats chills shortness of breath or chest pain. Not using IS. Not ambulating, but got up to chair. Objective Exam General Appearance: No Apparent Distress, WD/WN HEENT: PERRL/EOMI, Normal ENT Inspection Neck: Non Tender, Supple Respiratory: Chest Non Tender, No Accessory Muscle Use, No Respiratory Distress Cardiovascular: Regular Rate, Rhythm, No JVD, No Murmur Gastrointestinal: non tender, soft Extremity: Normal Inspection, Non Tender Neurologic/Psychiatric: Alert, Oriented x3 Skin: Normal Color, Warm/Dry, Other (incision c/d/i no signs of infection) Assessment/Plan Assessment/Plan Assessment/Plan s/p exploratory laparotomy with small bowel resection iv fluids pain control encouraged ambulation and use of IS repeat labs in am keep on clears. once bowel function returns will advance. Supervisory-Addendum Brief Verification & Attestation Participated in pt care: history, MDM, physical Personally performed: exam, history, MDM, supervision of care Care discussed with: Medical Student Procedures: n/a Results interpretation: Verified all documentation Verification and Attestation of Medical Student E/M Service A medical student performed and documented this service in my presence. I reviewed and verified all information documented by the medical student and made modifications to such information, when appropriate. I personally performed the physical exam and medical decision making. Josseline Loza, Nov 22, 2021,16:03 BERNARD FLOWERS Nov 22, 2021 07:36 JOSSELINE LOZA DO Nov 22, 2021 16:03
[2021-11-22] MEDS: FAMOTIDINE 20 MG (PEPCID) TABLET PO SCH ×2 (08:22→21:23)
[2021-11-22] MEDS: NICOTINE 21 MG (NICODERM) PATCH TD SCH (08:22)
[2021-11-22] MEDS ORDERED: LOSARTAN 100 MG (COZAAR) TABLET PO SCH (09:00)
--- NOTE | 2021-11-22 09:39 | OPERATIVE REPORT ---
DATE OF SERVICE: 11/21/2021 PREOPERATIVE DIAGNOSES: Anterior abdominal wall mass, periumbilical pain. POSTOPERATIVE DIAGNOSIS: Enterocutaneous fistula. PROCEDURE: Exploratory laparotomy with small bowel resection. SURGEON: Alton Loza DO NEURO PSYCH SALES SPECIALIST: Dr. Bahena, assisted in retraction, dissection and closure. ANESTHESIA: General. ESTIMATED BLOOD LOSS: Minimal. COMPLICATIONS: None. INDICATIONS: The patient is a 56-year-old male with abdominal mass and periumbilical pain. Workup for this, which could clearly define what was going on about the area. There were concern of possible stitch granuloma versus fistula versus a superficial abscess. The patient was discussed risks and benefits of procedure and wished to proceed. Consent was signed in the chart. DESCRIPTION OF PROCEDURE: The patient was taken to the operating suite, was prepped and draped in sterile fashion. Surgical pause was performed. A 15 blade scalpel was used to make a midline skin incision, which then cautery used to dissect down until the fascia was encountered multiple Prolene stitches that had been previously placed at previous. Noticing a track down to the area of one of the stitches. Stitches was able to be removed; however, did not appear this was exactly the source as well. The fascia was divided slightly cephalad to this area and bowel loop was stuck up to the fascia just to the right of the opening, which the tract was able to directly followed into the small bowel noting this is an enterocutaneous fistula. Multiple adhesions were to the abdominal wall, so lysis of adhesions of the small bowel was then performed, mobilizing all the bowel loops that were attached to the anterior abdominal wall and also to each other. The fistula tract was opened further. No other pathology noted. Distal to the opening was then clamped with an Allis a Froylan two-step anastomosis was created with [id number] stapled line. Two openings were made after the bowel had been dissected around the mesentery side and a linear stapler was placed down each limb and this was then fired. A crotch stitch was placed as well. Reload was then fired across creating a [id number] anastomosis. Mesentery was divided, clamped and cut, and tied off with 3-0 silk suture. Then, 3-0 Vicryl was used to close the defect of the mesentery to the bowel. Anastomosis was patent and the bowel was viable. This was placed back in the abdomen. The fascia was then closed using 1-0 looped PDS. Wound was then irrigated, and the skin was then closed with virginia. The patient tolerated procedure well without any complications, taken to recovery room in stable condition. Job ID: [id number] DocumentID: [id number] Dictated Date: 11/22/2021 00:04:01 Hydrology Technician Date: 11/22/2021 09:38:37 Dictated By: DO CHASITY ESTEVEZ
[2021-11-22] MEDS ORDERED: PANTOPRAZOLE 40 MG (PROTONIX) VIAL IV NR (10:30)
[2021-11-22 11:51] LABS: BASOPHILS % (AUTO) 0 % (0-10); EOSINOPHILS # (AUTO) 0.1 10^3/uL (0.0-0.3); EOSINOPHILS % (AUTO) 1 % (0-10); HEMATOCRIT 42 % (40-54); HEMOGLOBIN 14.4 g/dL (13.3-17.7); LYMPHOCYTES # (AUTO) 1.8 10^3/uL (1.0-4.0); LYMPHOCYTES % (AUTO) 12 % (12-44); MEAN CORPUSCULAR HEMOGLOBIN 31 pg (25-34); MEAN CORPUSCULAR HGB CONC 34 g/dL (32-36); MEAN CORPUSCULAR VOLUME 90 fL (80-99); MEAN PLATELET VOLUME 10.5 fL (9.0-12.2); MONOCYTES # (AUTO) 1.4 10^3/uL (0.0-1.0); MONOCYTES % (AUTO) 10 % (0-12); NEUTROPHILS # (AUTO) 11.3 10^3/uL (1.8-7.8); NEUTROPHILS % (AUTO) 77 % (42-75); PLATELET COUNT 236 10^3/uL (130-400); WHITE BLOOD COUNT 14.7 10^3/uL (4.3-11.0)
[2021-11-22 12:05] LABS: BAND NEUTROPHILS 2 %; BASOPHILS % (MANUAL) 0 %; EOSINOPHILS % (MANUAL) 2 %; LYMPHOCYTES % (MANUAL) 15 %; MONOCYTES % (MANUAL) 9 %; NEUTROPHILS % (MANUAL) 72 %; RBC MORPH NORMAL
[2021-11-22 12:20] LABS: ALANINE AMINOTRANSFERASE < 6 U/L (0-55); ALBUMIN 3.6 GM/DL (3.2-4.5); ALKALINE PHOSPHATASE 59 U/L (40-136); BILIRUBIN,TOTAL 0.9 MG/DL (0.1-1.0); BUN/CREATININE RATIO 8; CALCIUM 8.7 MG/DL (8.5-10.1); CARBON DIOXIDE 26 MMOL/L (21-32); CHLORIDE 104 MMOL/L (98-107); CREATININE SERUM 0.92 MG/DL (0.60-1.30); GFR ESTIMATED 96; GLUCOSE 102 MG/DL (70-105); POTASSIUM 3.7 MMOL/L (3.6-5.0); SODIUM 139 MMOL/L (135-145); TOTAL PROTEIN 6.4 GM/DL (6.4-8.2)
--- NOTE | 2021-11-22 13:56 | Consultation - Hospitalist ---
JAUN ARCE 11/22/21 1356: HPI History of Present Illness: HPI/Chief Complaint Consult requested by Dr. Loza. Patient is a 56 year old male status post exploratory laparotomy (11-21-2021) for an anterior wall abdominal mass. He is still experiencing constant diffuse abdominal pain following surgery which he rates as 5/10 at rest and 8/10 when he stands up. He was able to get out of bed for the first time since surgery today.He has yet to pass any stool or gas at this time. His appetite is still good. He is showing concern about what the mass of his abdomen may have been. And is awaiting discussion with the surgeon. Patient denies any vomiting, chest, or chills. Besides abdominal pain, patient is doing well, alert, and interactive with staff. Source: patient Exam Limitations: no limitations Date Seen 11/22/21 Attending Physician Stas Booth MD PCP Admitting Physician: Attending Physician: Alton Loza DO Referring Physician Date of Admission Home Medications & Allergies Home Medications Reviewed patient Home Medication Reconciliation performed by pharmacy medication reconciliations voip network technician and/or nursing. Patients Allergies have been reviewed. Allergies Allergies Coded Allergies No Known Drug Allergies (Pegtgwefby18/3/16) Past Draftbu-Klzopx-Qtkown Hx Patient Social History Tobacco Use?: Yes Tobacco type used: Cigarettes Smoking Status: Current Everyday Smoker Use of E-Cig and/or Vaping dev: No Substance use?: No Alcohol Use?: Yes Alcohol type: Beer Alcohol Frequency: Couple times a week Pt feels they are or have been: No Immunizations Up To Date First/Initial COVID19 Vaccinat: 2020 Second COVID19 Vaccination Perico: 2020 Tetanus Booster (TDap): More Than 5 Years Seasonal Allergies Seasonal Allergies: Yes Current Status Advance Directives: No Advance Directive Location: Home Communicates: Verbally Primary Language: Japanese Is interpretation needed?: No Implanted or Applied Medical D: None Past Medical History Surgeries: Testicular, Tonsillectomy Currently Using CPAP: No Currently Using BIPAP: No Hypertension Gastroesophageal Reflux, Hepatitis, Irritable Bowel Arthritis, Chronic Back Pain Lymphoma, Testicular What Type of Treatment Did You: Chemotherapy, Radiation, Surgical Intervention Blood Disorders: No Review of Systems Constitutional: No chills, No fever; weakness EENTM: No hearing loss, No ear pain Respiratory: No cough, No dyspnea on exertion, No short of breath Cardiovascular: No chest pain, No palpitations Gastrointestinal: abdominal pain, nausea (mild) Genitourinary: No dysuria, No incontinence Musculoskeletal: back pain, muscle stiffness Skin: No change in color, No change in hair/nails Psychiatric/Neurological: Denies Depressed, Denies Emotional Problems Physical Exam Physical Exam Vital Signs Vital Signs - First Documented 11/21/21 09:10 Temp 36.3 Pulse 75 Resp 18 B/P (MAP) 188/96 (126) Pulse Ox 98 O2 Delivery Room Air Capillary Refill : Height, Weight, BMI Height: 5'7.00" Weight: 194lbs. 0.0oz. 87.310892iy; 30.03 BMI Method: General Appearance: No Apparent Distress, WD/WN HEENT: PERRL/EOMI, Moist Mucous Membranes Neck: Non Tender, Supple Respiratory: Lungs Clear, Normal Breath Sounds Cardiovascular: Regular Rate, Rhythm, No Edema Gastrointestinal: No No Organomegaly, No Non Tender Rectal: No Deferred Back: No No CVA Tenderness, No No Vertebral Tenderness Extremity: Normal Inspection, Non Tender Neurologic/Psychiatric: Alert, Oriented x3 Skin: Normal Color, Warm/Dry Results Results/Procedures Labs Laboratory Tests 11/22/21 11:45 Patient resulted labs reviewed. Assessment/Plan Assessment and Plan Assess & Plan/Chief Complaint Post exploratory laparotomy Monitor pain DVT prophylaxis Continue use of incentive spirometer Obtain CBC and CMP Supportive Care History of Testicular Cancer HTN Continue home medication Current smoker Discuss cessation Leukocytosis JOSEFINA CORONA DO 11/23/21 0610: HPI History of Present Illness: HPI/Chief Complaint CC: Abdominal wall mass HPI: This is a 56 yr old male, clinic pt of [facility]. He is status post exploratory surgery requiring a small bowel resection and intra fistula section. He is a current smoker. IS was ordered. He is otherwise stable and labs were ordered. Source: patient Exam Limitations: no limitations Assessment/Plan Assessment and Plan Assess & Plan/Chief Complaint Post op doing well Supportive care Supervisory-Addendum Brief Verification & Attestation Participated in pt care: history, MDM, physical Personally performed: exam, history, MDM, supervision of care Care discussed with: Medical Student Procedures: n/a Results interpretation: Verified all documentation Verification and Attestation of Medical Student E/M Service A medical student performed and documented this service in my presence. I reviewed and verified all information documented by the medical student and made modifications to such information, when appropriate. I personally performed the physical exam and medical decision making. Josefina Corona, Nov 23, 2021,06:10 JAUN ARCE Nov 22, 2021 13:56 JOSEFINA CORONA DO Nov 23, 2021 06:10
--- NOTE | 2021-11-22 14:50 | Anesthesia-General Post-Op ---
General Patient Condition Mental Status/LOC: Same as Preop Cardiovascular: Satisfactory Nausea/Vomiting: Absent Respiratory: Satisfactory Pain: Controlled Complications: Absent Post Op Complications Complications None Follow Up Care/Instructions Patient Instructions None needed. Anesthesia/Patient Condition Patient Condition Patient is doing well, no complaints, stable vital signs, no apparent adverse anesthesia problems. No complications reported per nursing. RAYMOND REYNOLDS CRNA Nov 22, 2021 14:50
[2021-11-22] MEDS: LOSARTAN 100 MG (COZAAR) TABLET PO SCH (21:23)
[2021-11-23] VITALS (7 sets, daily range): BP systolic 132–189; BP diastolic 71–91
[2021-11-23] MEDS: LACTATED RINGERS 1,000 ML IV SCH (03:12)
[2021-11-23] MEDS: morphine INJ 4 MG/ML 1 ML (VIAL/SYRINGE) IV PRN (03:25)
[2021-11-23] MEDS: diphenhydrAMINE 25 MG TAB (BENADRYL) PO PRN ×2 (05:14→21:42)
[2021-11-23 06:17] LABS: BASOPHILS % (AUTO) 0 % (0-10); EOSINOPHILS # (AUTO) 0.1 10^3/uL (0.0-0.3); EOSINOPHILS % (AUTO) 0 % (0-10); HEMATOCRIT 43 % (40-54); HEMOGLOBIN 14.4 g/dL (13.3-17.7); LYMPHOCYTES # (AUTO) 1.3 10^3/uL (1.0-4.0); LYMPHOCYTES % (AUTO) 8 % (12-44); MEAN CORPUSCULAR HEMOGLOBIN 30 pg (25-34); MEAN CORPUSCULAR HGB CONC 34 g/dL (32-36); MEAN CORPUSCULAR VOLUME 89 fL (80-99); MEAN PLATELET VOLUME 11.5 fL (9.0-12.2); MONOCYTES # (AUTO) 1.4 10^3/uL (0.0-1.0); MONOCYTES % (AUTO) 9 % (0-12); NEUTROPHILS # (AUTO) 12.2 10^3/uL (1.8-7.8); NEUTROPHILS % (AUTO) 82 % (42-75); PLATELET COUNT 262 10^3/uL (130-400); WHITE BLOOD COUNT 14.9 10^3/uL (4.3-11.0)
[2021-11-23 06:39] LABS: ALBUMIN 3.4 GM/DL (3.2-4.5); CHLORIDE 104 MMOL/L (98-107); POTASSIUM 3.6 MMOL/L (3.6-5.0); SODIUM 139 MMOL/L (135-145)
[2021-11-23 06:40] LABS: CALCIUM 8.8 MG/DL (8.5-10.1)
[2021-11-23 06:41] LABS: GLUCOSE 96 MG/DL (70-105)
[2021-11-23 06:42] LABS: TOTAL PROTEIN 6.5 GM/DL (6.4-8.2)
[2021-11-23 06:43] LABS: BILIRUBIN,TOTAL 0.8 MG/DL (0.1-1.0); CARBON DIOXIDE 22 MMOL/L (21-32)
[2021-11-23 06:45] LABS: ALKALINE PHOSPHATASE 61 U/L (40-136); CREATININE SERUM 0.83 MG/DL (0.60-1.30); GFR ESTIMATED 101
[2021-11-23 06:46] LABS: BUN/CREATININE RATIO 8
[2021-11-23 06:48] LABS: ALANINE AMINOTRANSFERASE < 6 U/L (0-55)
--- NOTE | 2021-11-23 08:01 | Progress Note - Hospitalist ---
Subjective HPI/CC On Admission Date Seen by Provider: Nov 23, 2021 Time Seen by Provider: 11:00 CC: Abdominal wall mass HPI: This is a 56 yr old male, clinic pt of [facility]. He is status post exploratory surgery requiring a small bowel resection and intra fistula section. He is a current smoker. IS was ordered. He is otherwise stable and labs were ordered. Subjective/Events-last exam Doing much better Soft diet Pain controlled Review of Systems General: Fatigue, Malaise Objective Exam Vital Signs Vital Signs Date Time Temp Pulse Resp B/P (MAP) Pulse Ox O2 Delivery O2 Flow Rate FiO2 11/23/21 15:41 189/90 (123) 11/23/21 15:32 37.9 78 18 96 Room Air 11/21/21 12:40 8 Capillary Refill : General Appearance: No Apparent Distress, WD/WN, Chronically ill Respiratory: Lungs Clear, Normal Breath Sounds Cardiovascular: Regular Rate, Rhythm Neurologic/Psychiatric: Alert, Oriented x3, No Motor/Sensory Deficits, Normal Mood/Affect Results/Procedures Lab Laboratory Tests 11/23/21 05:39 Patient resulted labs reviewed. Assessment/Plan Assessment and Plan Assess & Plan/Chief Complaint Post op doing well Supportive care FREEMAN CORONA DO Nov 23, 2021 08:01
[2021-11-23] MEDS: PANTOPRAZOLE 40 MG (PROTONIX) VIAL IV SCH (08:02)
[2021-11-23] MEDS: FAMOTIDINE 20 MG (PEPCID) TABLET PO SCH ×2 (08:02→20:28)
[2021-11-23] MEDS: ENOXAPARIN 40 MG/0.4 ML (LOVENOX) SYR SC SCH (08:03)
[2021-11-23] MEDS: NICOTINE 21 MG (NICODERM) PATCH TD SCH (08:03)
--- NOTE | 2021-11-23 09:42 | Progress Note - Surgery ---
JOSH CARO 11/23/21 0942: Subjective Date Seen by a Provider: Nov 23, 2021 Time Seen by a Provider: 07:30 Subjective/Events-last exam Patient is doing well today. He still has pain at the incision site rated 4/10 but says it is much better than it has been. Patient has not had a BM yet but mendoza s been having frequent flatus. He is ambulating and using his IS, tolerating liquid diet well and is requesting to advance his diet. Review of Systems General: No Chills, No Night Sweats Pulmonary: No Dyspnea, No Cough Cardiovascular: No: Chest Pain Gastrointestinal: Nausea, Abdominal Pain; No: Vomiting Musculoskeletal: No: neck pain Objective Exam Vital Signs Date Time Temp Pulse Resp B/P (MAP) Pulse Ox O2 Delivery O2 Flow Rate FiO2 11/23/21 08:33 158/82 (107) 11/23/21 08:14 Room Air 11/23/21 07:16 36.0 79 18 182/88 (119) 97 Room Air 11/23/21 03:39 37.3 84 18 173/72 (105) 95 Room Air 11/22/21 23:19 37.5 91 18 172/77 (108) 97 Room Air 11/22/21 20:43 Room Air 11/22/21 20:00 37.4 73 18 190/87 (121) 97 Room Air 11/22/21 15:13 36.7 88 20 178/87 (117) 98 Room Air 11/22/21 12:12 37.4 78 19 186/89 (121) 98 Room Air I & O 11/23/21 07:00 Intake Total 1210 ml Output Total 2650 ml Balance -1440 ml Capillary Refill : General Appearance: No Apparent Distress Neck: Non Tender; No Lymphadenopathy (L), No Lymphadenopathy (R) Respiratory: Chest Non Tender, Lungs Clear, Normal Breath Sounds, No Accessory Muscle Use, No Respiratory Distress Cardiovascular: Regular Rate, Rhythm, No Murmur, Normal Peripheral Pulses Peripheral Pulses: 2+ Radial Pulses (R), 2+ Radial Pulses (L) Gastrointestinal: normal bowel sounds, soft Neurologic/Psychiatric: Alert, Oriented x3 Skin: Other (incision has no signs of infection) Results Lab Laboratory Tests 11/22/21 11:45: White Blood Count 14.7H, Red Blood Count 4.68, Hemoglobin 14.4, Hematocrit 42, Mean Corpuscular Volume 90, Mean Corpuscular Hemoglobin 31, Mean Corpuscular Hemoglobin Concent 34, Red Cell Distribution Width 12.3, Platelet Count 236, Mean Platelet Volume 10.5, Immature Granulocyte % (Auto) 1, Neutrophils (%) (Auto) 77H, Lymphocytes (%) (Auto) 12, Monocytes (%) (Auto) 10, Eosinophils (%) (Auto) 1, Basophils (%) (Auto) 0, Neutrophils # (Auto) 11.3H, Lymphocytes # (Auto) 1.8, Monocytes # (Auto) 1.4H, Eosinophils # (Auto) 0.1, Basophils # (Auto) 0.0, Immature Granulocyte # (Auto) 0.1, Neutrophils % (Manual) 72, Lymphocytes % (Manual) 15, Monocytes % (Manual) 9, Eosinophils % (Manual) 2, Ba sophils % (Manual) 0, Band Neutrophils 2, Blood Morphology Comment NORMAL, Sodium Level 139, Potassium Level 3.7, Chloride Level 104, Carbon Dioxide Level 26, Anion Gap 9, Blood Urea Nitrogen 7, Creatinine 0.92, Estimat Glomerular Filtration Rate 96, BUN/Creatinine Ratio 8, Glucose Level 102, Calcium Level 8.7, Corrected Calcium 9.0, Total Bilirubin 0.9, Aspartate Amino Transf (AST /SGOT) 13, Alanine Aminotransferase (ALT/SGPT) < 6, Alkaline Phosphatase 59, Total Protein 6.4, Albumin 3.6 11/23/21 05:39: White Blood Count 14.9H, Red Blood Count 4.76, Hemoglobin 14.4, Hematocrit 43, Mean Corpuscular Volume 89, Mean Corpuscular Hemoglobin 30, Mean Corpuscular Hemoglobin Concent 34, Red Cell Distribution Width 12.0, Platelet Count 262, Mean Platelet Volume 11.5, Immature Granulocyte % (Auto) 0, Neutrophils (%) (Auto) 82H, Lymphocytes (%) (Auto) 8L, Monocytes (%) (Auto) 9, Eosinophils (%) (Auto) 0, Basophils (%) (Auto) 0, Neutrophils # (Auto) 12.2H, Lymphocytes # (Auto) 1.3, Monocytes # (Auto) 1.4H, Eosinophils # (Auto) 0.1, Basophils # ( Auto) 0.0, Immature Granulocyte # (Auto) 0.1, Sodium Level 139, Potassium Level 3.6, Chloride Level 104, Carbon Dioxide Level 22, Anion Gap 13, Blood Urea Nitrogen 7, Creatinine 0.83, Estimat Glomerular Filtration Rate 101, BUN/Creatinine Ratio 8, Glucose Level 96, Calcium Level 8.8, Corrected Calcium 9.3, Total Bilirubin 0.8, Aspartate Amino Transf (AST/SGOT) 14, Alanine Aminotransferase (ALT/SGPT) < 6, Alkaline Phosphatase 61, Total Protein 6.5, Albumin 3.4 Microbiology 11/21/21 MRSA Screen - Final, Complete MRSA not isolated Assessment/Plan Assessment/Plan Assessment/Plan s/p exploratory laparotomy with small bowel resection Keep the patient on IV fluids, pain is well controlled with morphine. Encourage the patient to continue ambulating and using IS. Keep on clear liquid diet until bowel function returns. Repeat labs in AM ARNOLD BAHENA DO 11/23/21 1118: Subjective Time Seen by a Provider: 10:25 Subjective/Events-last exam Pt seen and examined, states he is doing better today. Tolerating clears (wants to eat more), + flatus but no BM. Review of Systems General: No Chills, No Night Sweats Pulmonary: No Dyspnea, No Cough Cardiovascular: No: Chest Pain Gastrointestinal: Nausea, Abdominal Pain; No: Vomiting Objective Exam Respiratory: Chest Non Tender, Lungs Clear, Normal Breath Sounds, No Accessory Muscle Use, No Respiratory Distress Cardiovascular: Regular Rate, Rhythm, No Murmur Gastrointestinal: normal bowel sounds, soft, other (incision is c/d/I) Neurologic/Psychiatric: Alert, Oriented x3 Assessment/Plan Assessment/Plan Assessment/Plan S/P small bowel resection POD#2 Pain is controlled with morphine; will switch to oral. Will increase to a soft diet. Encourage the patient to continue ambulating and using IS. Supervisory-Addendum Brief Verification & Attestation Participated in pt care: history, MDM, physical Personally performed: exam, history, MDM, supervision of care Care discussed with: Medical Student Procedures: n/a Verification and Attestation of Medical Student E/M Service A medical student performed and documented this service. I then reviewed and verified all information documented by the medical student and made modifications to such information, when appropriate. I personally performed a physical exam, medical decision making and then discussed any differences between the notes and made revisions as necessary to create one note. Arnold Bahena , 11/23/21 , 11:18 JOSH CARO Nov 23, 2021 09:42 ARNOLD BAHENA DO Nov 23, 2021 11:18
[2021-11-23] MEDS ORDERED: FUROSEMIDE 40 MG/4 ML INJ (LASIX) IVP ONE (16:00)
[2021-11-23] MEDS ORDERED: amLODIPine 5 MG (NORVASC) TAB PO ONE (16:00)
[2021-11-23] MEDS ORDERED: cloNIDine 0.1 MG (CATAPRES) TAB PO PRN (16:00)
[2021-11-23] MEDS: LOSARTAN 100 MG (COZAAR) TABLET PO SCH (20:28)
[2021-11-24] VITALS: BP 138/69
[2021-11-24 03:14] VITALS: BP 124/63
[2021-11-24] MEDS: diphenhydrAMINE 25 MG TAB (BENADRYL) PO PRN (05:11)
[2021-11-24 05:40] LABS: BASOPHILS % (AUTO) 0 % (0-10); EOSINOPHILS # (AUTO) 0.5 10^3/uL (0.0-0.3); EOSINOPHILS % (AUTO) 5 % (0-10); HEMATOCRIT 40 % (40-54); HEMOGLOBIN 13.8 g/dL (13.3-17.7); LYMPHOCYTES # (AUTO) 2.3 10^3/uL (1.0-4.0); LYMPHOCYTES % (AUTO) 23 % (12-44); MEAN CORPUSCULAR HEMOGLOBIN 31 pg (25-34); MEAN CORPUSCULAR HGB CONC 34 g/dL (32-36); MEAN CORPUSCULAR VOLUME 90 fL (80-99); MEAN PLATELET VOLUME 11.4 fL (9.0-12.2); MONOCYTES # (AUTO) 1.1 10^3/uL (0.0-1.0); MONOCYTES % (AUTO) 11 % (0-12); NEUTROPHILS % (AUTO) 60 % (42-75); PLATELET COUNT 249 10^3/uL (130-400); WHITE BLOOD COUNT 9.9 10^3/uL (4.3-11.0)
[2021-11-24 06:04] LABS: ALBUMIN 3.4 GM/DL (3.2-4.5)
[2021-11-24 06:05] LABS: POTASSIUM 3.7 MMOL/L (3.6-5.0)
[2021-11-24 06:06] LABS: CALCIUM 8.7 MG/DL (8.5-10.1)
[2021-11-24 06:07] LABS: TOTAL PROTEIN 6.4 GM/DL (6.4-8.2)
[2021-11-24 06:09] LABS: BILIRUBIN,TOTAL 0.6 MG/DL (0.1-1.0)
[2021-11-24 06:11] LABS: CREATININE SERUM 0.86 MG/DL (0.60-1.30)
--- NOTE | 2021-11-24 06:38 | Progress Note - Hospitalist ---
Subjective HPI/CC On Admission Date Seen by Provider: Nov 24, 2021 Time Seen by Provider: 11:00 CC: Abdominal wall mass HPI: This is a 56 yr old male, clinic pt of [facility]. He is status post exploratory surgery requiring a small bowel resection and intra fistula section. He is a current smoker. IS was ordered. He is otherwise stable and labs were ordered. Subjective/Events-last exam Patient refuses all meds DC planned Review of Systems General: Fatigue, Malaise Gastrointestinal: Abdominal Pain Objective Exam Vital Signs Vital Signs Date Time Temp Pulse Resp B/P (MAP) Pulse Ox O2 Delivery O2 Flow Rate FiO2 11/24/21 12:02 36.9 71 14 156/85 (108) 96 Room Air 11/21/21 12:40 8 Capillary Refill : General Appearance: No Apparent Distress, WD/WN, Chronically ill, Obese Respiratory: Lungs Clear, Normal Breath Sounds Cardiovascular: Regular Rate, Rhythm Neurologic/Psychiatric: Alert, Oriented x3, No Motor/Sensory Deficits, Normal Mood/Affect Results/Procedures Lab Laboratory Tests 11/24/21 04:48 Patient resulted labs reviewed. Assessment/Plan Assessment and Plan Assess & Plan/Chief Complaint Post op doing well Supportive care FREEMAN CORONA DO Nov 24, 2021 06:38
[2021-11-24 07:39] VITALS: BP 129/70
[2021-11-24] MEDS: NICOTINE 21 MG (NICODERM) PATCH TD SCH (08:24)
[2021-11-24] MEDS: FAMOTIDINE 20 MG (PEPCID) TABLET PO SCH (08:24)
--- NOTE | 2021-11-24 08:41 | Progress Note - Surgery ---
JOSH CARO 11/24/21 0841: Subjective Date Seen by a Provider: Nov 24, 2021 Time Seen by a Provider: 07:30 Subjective/Events-last exam Patient is feeling good today. We advanced his diet yesterday and he is tolerating solid foods well. His pain is well controlled with oral pain meds this AM, claimed his pain was a 3 or 4 out of 10 but still better than yesterday. He is having frequent flatus but has not had a bowel movement. He continues to ambulate and use his IS. Review of Systems General: No Chills, No Night Sweats Pulmonary: No Dyspnea, No Cough Cardiovascular: No: Chest Pain Gastrointestinal: Nausea, Abdominal Pain; No: Vomiting Objective Exam Vital Signs Date Time Temp Pulse Resp B/P (MAP) Pulse Ox O2 Delivery O2 Flow Rate FiO2 11/24/21 07:39 36.7 60 18 129/70 (89) 97 Room Air 11/24/21 03:14 35.3 67 18 124/63 (83) 95 Room Air 11/24/21 00:00 37.2 74 16 138/69 (92) 96 Room Air 11/23/21 19:48 Room Air 11/23/21 19:00 37.1 80 20 132/71 (91) 99 Room Air 11/23/21 15:41 189/90 (123) 11/23/21 15:32 37.9 78 18 180/91 (120) 96 Room Air 11/23/21 11:14 36.6 84 18 166/74 (104) 98 Room Air I & O 11/24/21 07:00 Intake Total 1480 ml Output Total 1075 ml Balance 405 ml Capillary Refill : General Appearance: No Apparent Distress, Obese Neck: Non Tender; No Lymphadenopathy (L), No Lymphadenopathy (R) Respiratory: Lungs Clear, Normal Breath Sounds, No Accessory Muscle Use, No Respiratory Distress Cardiovascular: Regular Rate, Rhythm, No Murmur Peripheral Pulses: 2+ Radial Pulses (R), 2+ Radial Pulses (L) Gastrointestinal: normal bowel sounds, soft, tenderness (diffuse tenderness, patient said because he is so full), other (incision is c/d/I) Neurologic/Psychiatric: Alert, Oriented x3, Normal Mood/Affect Results Lab Laboratory Tests 11/24/21 04:48: White Blood Count 9.9, Red Blood Count 4.44, Hemoglobin 13.8, Hematocrit 40, Mean Corpuscular Volume 90, Mean Corpuscular Hemoglobin 31, Mean Corpuscular H emoglobin Concent 34, Red Cell Distribution Width 12.2, Platelet Count 249, Mean Platelet Volume 11.4, Immature Granulocyte % (Auto) 1, Neutrophils (%) (Auto) 60, Lymphocytes (%) (Auto) 23, Monocytes (%) (Auto) 11, Eosinophils (%) (Auto) 5, Basophils (%) (Auto) 0, Neutrophils # (Auto) 6.0, Lymphocytes # (Auto) 2.3, Monocytes # (Auto) 1.1H, Eosinophils # (Auto) 0.5H, Basophils # (Auto) 0.0, Immature Granulocyte # (Auto) 0.1, Sodium Level 142, Potassium Level 3.7, Chl oride Level 104, Carbon Dioxide Level 24, Anion Gap 14, Blood Urea Nitrogen 11, Creatinine 0.86, Estimat Glomerular Filtration Rate 100, BUN/Creatinine Ratio 13, Glucose Level 95, Calcium Level 8.7, Corrected Calcium 9.2, Total Bilirubin 0.6, Aspartate Amino Transf (AST/SGOT) 14, Alanine Aminotransferase (ALT/SGPT) 6, Alkaline Phosphatase 53, Total Protein 6.4, Albumin 3.4 Microbiology 11/21/21 MRSA Screen - Final, Complete MRSA not isolated Assessment/Plan Assessment/Plan Assessment/Plan S/P small bowel resection POD#3 Pain is controlled with oral pain meds, he is tolerating a soft diet well, ambulating freely. Patient is cleared to be discharged from surgical standpoint. ARNOLD BAHENA DO 11/24/21 1410: Subjective Time Seen by a Provider: 12:21 Subjective/Events-last exam Pt seen and examined states he is ready to go home. Tolerating diet with +flatus. Review of Systems General: No Chills, No Night Sweats Pulmonary: No Dyspnea, No Cough Cardiovascular: No: Chest Pain Gastrointestinal: Abdominal Pain; No: Nausea, Vomiting Objective Exam General Appearance: No Apparent Distress, Obese Respiratory: Lungs Clear, Normal Breath Sounds, No Accessory Muscle Use, No Respiratory Distress Cardiovascular: Regular Rate, Rhythm, No Murmur Gastrointestinal: normal bowel sounds, soft, distended (very minimally), tenderness (diffuse tenderness, patient said because he is so full), other (incision is c/d/I, but there is some increased erythema at base....??mild cellulitis) Assessment/Plan Assessment/Plan Assessment/Plan Cellulitis - Abdomen S/P small bowel resection POD#3 Pain is controlled with oral pain meds, he is tolerating a soft diet well, ambulating freely. Will D/C IV and D/C home, home with oral abx for the cellulitis and some pain meds. F/U in week. Supervisory-Addendum Brief Verification & Attestation Participated in pt care: history, MDM, physical Personally performed: exam, history, MDM, supervision of care Care discussed with: Medical Student Procedures: n/a Verification and Attestation of Medical Student E/M Service A medical student performed and documented this service. I then reviewed and verified all information documented by the medical student and made modifications to such information, when appropriate. I personally performed a physical exam, medical decision making and then discussed any differences between the notes and made revisions as necessary to create one note. Arnold Bahena , 11/24/21 , 14:10 JOSH CARO Nov 24, 2021 08:41 ARNOLD BAHENA DO Nov 24, 2021 14:10
[2021-11-24] MEDS: PANTOPRAZOLE 40 MG (PROTONIX) VIAL IV SCH (08:42)
[2021-11-24] MEDS: ENOXAPARIN 40 MG/0.4 ML (LOVENOX) SYR SC SCH (08:42)
[2021-11-24] MEDS ORDERED: amLODIPine 5 MG (NORVASC) TAB PO SCH (09:00)
[2021-11-24 12:02] VITALS: BP 156/85
[2021-11-24] MEDS ORDERED: OXC5T PO (14:12)
[2021-11-24] MEDS ORDERED: CEPH500T PO (14:12)
--- NOTE | 2021-11-24 14:13 | Discharge Inst-Surgical ---
Discharge Inst-Surgical Depart Medication/Instructions New, Converted or Re-Newed RX: Transmitted to Pharmacy Patient Instructions Follow up Appt: Make appointment for 1 week. [phone] Instructions: No lifting greater than 20 pounds. No strenuous activity. May shower in 24 hours, no tub bath or soaking. Use incentive spirometer at home as directed. No Smoking Skin/Wound Care: May remove bandages in am. You need to leave the Dermabond on incision it will fall off on it's own. Symptoms to Report: Appetite Changes, Extremity Discoloration, Numbness/Tingling, Swelling Increased, Bleeding Excessive, Eyesight Changes, Pain Increased, Urine Color Change, Constipation(Persistent), Fever over 101 degree F, Pain/Pressure in chest, Urinating Difficulty, Cough Up/Vomit Blood, Heart Beat Irreg/Pounding, Pain/Pressure in jaw, Cramps in feet or legs, Lightheadedness, Pain/Pressure in shoulder, Diarrhea(Persistent), Memory Changes Suddenly, Questions/Concerns, Weight gain consecutive days, Dizziness/Fainting, Nausea/Vomiting, Shortness of Breath, Weight gain over 2 pounds If questions or concerns contact your physician Or seek help at emergency department. Activity Activity Instructions: Avoid Stress to Incision Driving Instructions: No Driving/Refer to Diet Discharge Diet: No Restrictions Diet After 24 Hours: Clear Liquid if Nauseous If Any Problems/Questions/Issu: Contact Your Physician, Go to Emergency Room Skin/Wound Care Infection Signs and Symptoms: Increased Redness, Foul Odor of Wound, Increased Drainage, Skin Itchy or Has a Rash, Increased Swelling, Temperature Above 101 F Bathing Instructions: Shower Stitches/Raul/Dermabond Dis: Care of JORGE Martinez DO Nov 24, 2021 14:13
== END 2021-11-24 14:30 | disposition home or self-care (01) | DRG 330 ==
LOC: SDC 09:03 → 4TH 09:06 → EDSTATUS 10:50 → 4TH 13:09 → SDC 13:09 → 4TH 11-24 14:30 → SDC 11-24 14:30
PROVIDERS: ADMIT Surgery; ATTEND Surgery
PROC: 0DB80ZZ Excision of Small Intestine, Open Approach (ICD-10-PCS; principal; 2021-11-21 10:25)
DX: K63.2 Fistula of intestine (principal); T81.41XA Infection following a procedure, superficial incisional surgical site, initial encounter; L03.311 Cellulitis of abdominal wall; E66.9 Obesity, unspecified; F17.210 Nicotine dependence, cigarettes, uncomplicated; I10 Essential (primary) hypertension; K21.9 Gastro-esophageal reflux disease without esophagitis; Z68.30 Body mass index [BMI] 30.0-30.9, adult; Z85.47 Personal history of malignant neoplasm of testis; Z82.49 Family history of ischemic heart disease and other diseases of the circulatory system
CPT/HCPCS: 36415; 80053; 85007; 85025; 85027; 87081